=== PATIENT | male | born 1990 | race African-American/Black ===

== ENCOUNTER 2024-06-25 19:22 | Emergency (ER) | payer SELFPAY ==
[2024-06-25] MEDS ORDERED: ALBUTEROL 2.5 MG/3 ML NEB SOL ONE ×2 (19:40→20:42)
[2024-06-25] MEDS ORDERED: IPRATROPIUM BROM 0.5MG/2.5ML ONE ×2 (19:40→20:42)
[2024-06-25] MEDS ORDERED: predniSONE 20 MG TAB ONE (19:40)
--- NOTE | 2024-06-25 20:11 | RAD REPORT ---
EXAMINATION: ONE VIEW CHEST XR CLINICAL INDICATION: DYSPNEA TECHNIQUE: Frontal chest projection is submitted. Examination is limited by patient positioning and t echnique. COMPARISON: No prior exam. FINDINGS: The lungs are well inflated and clear. The heart is normal in size. No displaced fractures identified . IMPRESSION: No acute intrathoracic abnormalities.
[2024-06-25 20:14] LABS: Influenza A Ag Negative; Influenza B Ag Negative; SARS-CoV-2 Antigen Rapid Res Negative (Negative)
[2024-06-25] MEDS ORDERED: METHYLPREDNISOLONE 125 MG INJ ONE (21:07)
[2024-06-25] MEDS ORDERED: Magnesium Sulfate 2gm IVPB 2 G/50 ML BAG IV ONE (21:08)
--- NOTE | 2024-06-25 21:33 | EDPHYS ---
Physician Documentation [facility] Name: Bteo Duffy Age: 33 yrs Sex: Male : 1990 Arrival Date: 06/25/2024 Time: : Bed 12 Private MD: ED Physician Samuel vAila HPI: 06/25 19:42 This 33 yrs old Male presents to ER via Ambulatory with complaints of Asthma sp3 Exacerbation, Shortness Of Breath. 19:42 33-year-old male with history of asthma presents to the ED with chief complaint sp3 shortness of breath and worsening asthma exacerbation has been going on for the last 3 to 4 days worsening today. He is speaking in 4-5 word sentences. He denies any fever, known sick contacts, travel history, prolonged immobilization, chest pain, back pain, or any other signs or symptoms on ROS at this time.. Historical: - Allergies: 19:38 No Known Allergies; bm8 - Home Meds: 19:38 Unable to obtain [Active]; bm8 - PMHx: 19:38 Asthma; bm8 - PSHx: 19:38 Unable to Obtain; bm8 - Immunization history:: Adult Immunizations up to date. - Infectious Disease History:: Denies. - Social history:: Smoking status: Patient denies any tobacco usage or history of. ROS: 19:44 Constitutional: Negative for fever, chills, and weight loss, Eyes: Negative for injury, sp3 pain, redness, and discharge, ENT: Negative for injury, pain, and discharge, Neck: Negative for injury, pain, and swelling, Cardiovascular: Negative for chest pain, palpitations, and edema, Abdomen/GI: Negative for abdominal pain, nausea, vomiting, diarrhea, and constipation, Back: Negative for injury and pain, MS/Extremity: Negative for injury and deformity, Skin: Negative for injury, rash, and discoloration, Neuro: Negative for headache, weakness, numbness, tingling, and seizure, Psych: Negative for depression, anxiety, suicide ideation, homicidal ideation, and hallucinations, Allergy/Immunology: Negative for hives, rash, and allergies, Endocrine: Negative for neck swelling, polydipsia, polyuria, polyphagia, and marked weight changes, Hematologic/Lymphatic: Negative for swollen nodes, abnormal bleeding, and unusual bruising, 19:44 All other systems are negative, Exam: 19:45 Constitutional: This is a well developed, well nourished patient who is awake, alert, sp3 and in no acute distress. Eyes: Pupils equal round and reactive to light, extra-ocular motions intact. Lids and lashes normal. Conjunctiva and sclera are non-icteric and not injected. Cornea within normal limits. Periorbital areas with no swelling, redness, or edema. Neck: Trachea midline, no thyromegaly or masses palpated, and no cervical lymphadenopathy. Supple, full range of motion without nuchal rigidity, or vertebral point tenderness. No Meningismus. Chest/axilla: Normal chest wall appearance and motion. Nontender with no deformity. No lesions are appreciated. Abdomen/GI: Soft, non-tender, with normal bowel sounds. No distension or tympany. No guarding or rebound. No evidence of tenderness throughout. Back: No spinal tenderness. No costovertebral tenderness. Full range of motion. Skin: Warm, dry with normal turgor. Normal color with no rashes, no lesions, and no evidence of cellulitis. MS/ Extremity: Pulses equal, no cyanosis. Neurovascular intact. Full, normal range of motion. Neuro: Awake and alert, GCS 15, oriented to person, place, time, and situation. Cranial nerves II-XII grossly intact. Motor strength 5/5 in all extremities. Sensory grossly intact. Cerebellar exam normal. Normal gait. 19:45 Cardiovascular: Rate: tachycardic, 19:45 Respiratory: Patient is inspiratory expiratory wheezes bilaterally. Respiratory rate 30 pulse rate 124. Satting at 97% on room air., Vital Signs: 19:37 BP 151 / 98; Pulse 124; Resp 30; Temp 98.2; Pulse Ox 97% ; Weight 68.04 kg; Height 5 bm8 ft. 9 in. ; Pain 6/10; 20:09 BP 128 / 91; Pulse 107; Resp 20 S; Pulse Ox 100% on 7 lpm Nebulizer Mask; ha1 20:23 BP 125 / 81; Pulse 110; Resp 20 S; Pulse Ox 100% on R/A; ha1 21:29 BP 149 / 27; Pulse 128; Resp 20; Pulse Ox 95% on R/A; al5 22:08 BP 132 / 92; Pulse 110; Resp 20; Pulse Ox 98% on R/A; al5 19:37 Body Mass Index 22.15 (68.04 kg, 175.26 cm) bm8 19:37 Pain Scale: Adult bm8 MDM: 19:29 Medical Screening Exam initiated sp3 19:46 Data reviewed: vital signs, nurses notes, radiologic studies. ED course: 33-year-old sp3 male with asthma now with asthma exacerbation versus bronchitis versus pneumonia versus viral illness. Workup will include chest x-ray and COVID and flu swab. Treatment will include DuoNeb, p.o. prednisone and general observation. Will add IV meds if indicated.. 21:01 ED course: Patient on second DuoNeb and still having inspiratory expiratory wheezing. sp3 Will start IV to give IV Solu-Medrol and 2 g of magnesium. Will reevaluate after that.. 21:32 ED course: Patient improved now with clear breath sounds bilaterally. Will refill his sp3 albuterol Nebules, inhaler and prednisone.. 03/02 19:39 Order name: COVID-19 Ag + Flu A+B Ag; Complete Time: 20:17 sp3 06/25 19:39 Order name: CXR XRAY; Complete Time: 20:17 sp3 /02 20:52 Order name: IV Saline Lock; Complete Time: 21:06 sp3 Administered Medications: 19:45 Drug: DuoNeb Nebulize (3:1) (2.5 mg - 0.5 mg) 3 ml Nebulizer once Route: Nebulizer; ha1 22:09 Follow up: Response: No adverse reaction al5 19:45 Drug: predniSONE PO 60 mg PO once Route: PO; ha1 22:10 Follow up: Response: No adverse reaction al5 20:44 Drug: DuoNeb Nebulize (3:1) (2.5 mg - 0.5 mg) 3 ml Nebulizer once Route: Nebulizer; ha1 22:10 Follow up: Response: No adverse reaction al5 21:09 Drug: MethylPrednisoLONE IVP 125 mg IVP once Route: IVP; Site: right hand; ha1 22:09 Follow up: Response: No adverse reaction al5 21:11 Drug: Magnesium Sulfate IVPB 2 grams IVPB once over 2 hrs Route: IVPB; Infused Over: 2 ha1 hrs; Site: right hand; 22:09 Follow up: Response: No adverse reaction; IV Status: Completed infusion; IV Intake: al5 100ml Disposition Summary: 06/25/24 21:32 Discharge Ordered Notes: Location: Home sp3 Condition: Stable sp3 Diagnosis - Asthma exacerbation sp3 Followup: sp3 - With: Private Physician - When: Upon discharge from the Emergency Department - Reason: Continuance of care Discharge Instructions: - Discharge Summary Sheet sp3 - Asthma Attack Prevention, Adult sp3 Forms: - Medication Reconciliation Form sp3 - Antibiotic Education sp3 - Prescription Opioid Use sp3 - Patient Portal Instructions sp3 - Leadership Thank You Letter sp3 Prescriptions: - Symbicort 80-4.5 mcg/actuation Inhalation HFA Aerosol Inhaler - inhale 2 inhalation INHALATION route 2 times per day; 1 Each; Refills: 0, sp3 Product Selection Permitted - albuterol sulfate 90 mcg/actuation Inhalation HFA Aerosol Inhaler - inhale 2 inhalation INHALATION route every 3 hours as needed for bronchospasm; sp3 administer via ventilator; 1 Applicator; Refills: 0, Product Selection Permitted - Albuterol Sulfate 2.5 mg /3 mL (0.083 %) Inhalation Solution for Nebulization - inhale 1 unit NEBULIZATION route every 8 hours As needed; 1 Each; Refills: 0, sp3 Product Selection Permitted - Prednisone 20 mg Oral Tablet - take 2 tablets ORAL route once daily for 5 days; 10 tablet; Refills: 0, Product sp3 Selection Permitted Signatures: Dispatcher [employer] EDSamuel Baig MD MD sp3 Skyla Jacob RN RN ha1 Deven Mohamud RN RN bm8 Ophelia Pope RN al5 Corrections: (The following items were deleted from the chart) 19:40 19:40 Chest Single View+RAD.RAD.BRZ ordered. EDMS EDMS 19:40 19:40 COVID-19 Ag + Flu A+B Ag+I.LAB.BRZ ordered. EDMS EDMS
--- NOTE | 2024-06-25 21:33 | ER ---
Nurse's Notes [facility] Name: Beto Duffy Age: 33 yrs Sex: Male : 1990 Arrival Date: 06/25/2024 Time: 19: Bed 12 Private MD: Diagnosis: Asthma exacerbation Presentation: 06/25 19:37 Chief complaint: Patient states: I have been having trouble with my asthma since bm8 yesterday. Coronavirus screen: At this time, the client does not indicate any symptoms associated with coronavirus-19. Ebola Screen: Patient negative for fever greater than or equal to 101.5 degrees Fahrenheit, and additional compatible Ebola Virus Disease symptoms Patient denies exposure to infectious person. Patient denies travel to an Ebola-affected area in the 21 days before illness onset. No symptoms or risks identified at this time. Initial Sepsis Screen: Does the patient meet any 2 criteria? No. Patient's initial sepsis screen is negative. Does the patient have a suspected source of infection? No. Patient's initial sepsis screen is negative. Risk Assessment: Do you want to hurt yourself or someone else? Patient reports no desire to harm self or others. Onset of symptoms was June 24, 2024 at 08:00. 19:37 Method Of Arrival: Ambulatory bm8 19:37 Acuity: NAVA 3 bm8 Triage Assessment: 19:38 General: Appears in no apparent distress. uncomfortable, Behavior is calm, cooperative, bm8 appropriate for age. Pain: Complains of pain in chest Pain currently is 6 out of 10 on a pain scale. Quality of pain is described as tightness. EENT: No deficits noted. No signs and/or symptoms were reported regarding the EENT system. Neuro: No deficits noted. Level of Consciousness is awake, alert, obeys commands, Oriented to person, place, time, situation, Appropriate for age. Cardiovascular: Reports chest pain, shortness of breath, Heart tones S1 S2 present Capillary refill < 3 seconds in bilateral fingers Patient's skin is warm and dry. Respiratory: Reports shortness of breath labored breathing Airway is patent Respiratory effort is even, labored, Respiratory pattern is regular, symmetrical, Breath sounds with wheezes bilaterally. Onset: The symptoms/episode began/occurred yesterday, the patient has moderate shortness of breath. GI: No signs and/or symptoms were reported involving the gastrointestinal system. : No signs and/or symptoms were reported regarding the genitourinary system. Derm: No signs and/or symptoms reported regarding the dermatologic system. Musculoskeletal: No signs and/or symptoms reported regarding the musculoskeletal system. Historical: - Allergies: 19:38 No Known Allergies; bm8 - Home Meds: 19:38 Unable to obtain [Active]; bm8 - PMHx: 19:38 Asthma; bm8 - PSHx: 19:38 Unable to Obtain; bm8 - Immunization history:: Adult Immunizations up to date. - Infectious Disease History:: Denies. - Social history:: Smoking status: Patient denies any tobacco usage or history of. Screenin:31 [facility] ED Fall Risk Assessment (Adult) History of falling in the last 3 months, al5 including since admission No falls in past 3 months (0 pts) Confusion or Disorientation No (0 pts) Intoxicated or Sedated No (0 pts) Impaired Gait No (0 pts) Mobility Assist Device Used No (0 pt) Altered Elimination Score/Fall Risk Level 0 - 2 = Low Risk Oriented to surroundings, Maintained a safe environment, Hourly rounding (assess needs \T\ fall precautionary measures) done. Abuse screen: Denies threats or abuse. Denies injuries from another. Nutritional screening: No deficits noted. Tuberculosis screening: No symptoms or risk factors identified. Assessment: 19:35 General: Appears uncomfortable, Behavior is cooperative. Pain: Denies pain. Neuro: ha1 Level of Consciousness is awake, alert, obeys commands, Oriented to person, place, time, situation. Cardiovascular: Reports shortness of breath, Capillary refill < 3 seconds Patient's skin is warm and dry. Rhythm is regular. Respiratory: Reports shortness of breath Airway is patent Respiratory effort is even, Respiratory pattern is tachypnea Breath sounds with wheezes bilaterally. GI: No signs and/or symptoms were reported involving the gastrointestinal system. : No signs and/or symptoms were reported regarding the genitourinary system. Derm: Skin is normal. Musculoskeletal: Circulation, motion, and sensation intact. 20:09 Reassessment: Patient and/or family updated on plan of care and expected duration. Pain ha1 level reassessed. Patient is alert, oriented x 3, equal unlabored respirations, skin warm/dry/pink. Patient states symptoms have improved. 20:23 Reassessment: Patient and/or family updated on plan of care and expected duration. Pain ha1 level reassessed. Patient is alert, oriented x 3, equal unlabored respirations, skin warm/dry/pink. Patient states symptoms have improved. 21:28 General: Appears in no apparent distress. comfortable, Behavior is calm, cooperative. al5 21:28 Pain: Denies pain. Neuro: Level of Consciousness is awake, alert, obeys commands, al5 Oriented to person, place, time, situation. Cardiovascular: Reports tightness in chest Capillary refill < 3 seconds Patient's skin is warm and dry. Rhythm is regular. Respiratory: Airway is patent Respiratory effort is even, unlabored, Respiratory pattern is regular, symmetrical, Breath sounds are clear bilaterally. GI: No signs and/or symptoms were reported involving the gastrointestinal system. : No signs and/or symptoms were reported regarding the genitourinary system. EENT: No signs and/or symptoms were reported regarding the EENT system. Derm: Skin is intact, is healthy with good turgor, Skin is pink, warm \T\ dry. normal. Musculoskeletal: No signs and/or symptoms reported regarding the musculoskeletal system. 21:34 Reassessment: discharge pending finishing magnesium. al5 Vital Signs: 19:37 BP 151 / 98; Pulse 124; Resp 30; Temp 98.2; Pulse Ox 97% ; Weight 68.04 kg; Height 5 bm8 ft. 9 in. ; Pain 6/10; 20:09 BP 128 / 91; Pulse 107; Resp 20 S; Pulse Ox 100% on 7 lpm Nebulizer Mask; ha1 20:23 BP 125 / 81; Pulse 110; Resp 20 S; Pulse Ox 100% on R/A; ha1 21:29 BP 149 / 27; Pulse 128; Resp 20; Pulse Ox 95% on R/A; al5 22:08 BP 132 / 92; Pulse 110; Resp 20; Pulse Ox 98% on R/A; al5 19:37 Body Mass Index 22.15 (68.04 kg, 175.26 cm) bm8 19:37 Pain Scale: Adult bm8 ED Course: 19:26 Patient arrived in ED. jj6 19:28 Samuel Avila MD is Attending Physician. sp3 19:38 Triage completed. bm8 19:38 Arm band placed on right wrist. bm8 19:53 COVID-19 Ag + Flu A+B Ag Sent. ha1 20:05 CXR XRAY In Process Unspecified. EDMS 20:25 Skyla Jacob, WENDY is Primary Nurse. ha1 21:00 Inserted saline lock: 20 gauge in right Blood collected. Flushed with 10 mL NS. ha1 21:31 Patient has correct armband on for positive identification. Bed in low position. Call al5 light in reach. Side rails up X 1. Provided Education on: medications. 21:31 No provider procedures requiring assistance completed. al5 22:08 IV discontinued, intact, bleeding controlled, No redness/swelling at site. Pressure al5 dressing applied. Administered Medications: 19:45 Drug: DuoNeb Nebulize (3:1) (2.5 mg - 0.5 mg) 3 ml Nebulizer once Route: Nebulizer; ha1 22:09 Follow up: Response: No adverse reaction al5 19:45 Drug: predniSONE PO 60 mg PO once Route: PO; ha1 22:10 Follow up: Response: No adverse reaction al5 20:44 Drug: DuoNeb Nebulize (3:1) (2.5 mg - 0.5 mg) 3 ml Nebulizer once Route: Nebulizer; ha1 22:10 Follow up: Response: No adverse reaction al5 21:09 Drug: MethylPrednisoLONE IVP 125 mg IVP once Route: IVP; Site: right hand; ha1 22:09 Follow up: Response: No adverse reaction al5 21:11 Drug: Magnesium Sulfate IVPB 2 grams IVPB once over 2 hrs Route: IVPB; Infused Over: 2 ha1 hrs; Site: right hand; 22:09 Follow up: Response: No adverse reaction; IV Status: Completed infusion; IV Intake: al5 100ml Medication: 21:31 VIS not applicable for this client. al5 Intake: 22:09 IV: 100ml; Total: 100ml. al5 Outcome: 21:32 Discharge ordered by MD. nova 22:09 Discharged to home ambulatory, with family, al5 22:09 Condition: good 22:09 Discharge instructions given to patient, Instructed on discharge instructions, follow up and referral plans. medication usage, Demonstrated understanding of instructions, follow-up care, medications, Prescriptions given X 4, 22:09 Patient left the ED. al5 Signatures: Dispatcher [employer] EDMS Samuel Avila MD MD sp3 Miryam Johansen jj6 Skyla Jacob, RN RN ha1 Deven Mohamud RN RN bm8 Ophelia Pope RN RN al5 Corrections: (The following items were deleted from the chart) 21:29 21:28 General: Appears in no apparent distress. comfortable, Behavior is calm, al5 cooperative, al5
[2024-06-25 23:02] VITALS: TEMP 98.2
[2024-06-25 23:07] VITALS: BP 132/92; O2SAT 98
== END 2024-06-25 22:09 | disposition home or self-care (01) ==
LOC: ER 19:22
DX: J45.901 Unspecified asthma with (acute) exacerbation (principal); Z11.52 Encounter for screening for COVID-19
CPT/HCPCS: 36415; 71045; 87428; 96365; 96375; 99285; J2919; J3475; J7512; J7613; J7644

== ENCOUNTER 2024-07-10 04:00 | Emergency (ER) | payer SELFPAY ==
[2024-07-10] MEDS ORDERED: IPRATROPIUM BROM 0.5MG/2.5ML ONE (04:09)
[2024-07-10] MEDS ORDERED: ALBUTEROL 2.5 MG/3 ML NEB SOL ONE (04:09)
[2024-07-10] MEDS ORDERED: METHYLPREDNISOLONE 125 MG INJ ONE (04:10)
[2024-07-10] MEDS ORDERED: Magnesium Sulfate 2gm IVPB 2 G/50 ML BAG IV ONE (04:10)
[2024-07-10 04:31] LABS: Absolute Basophils 0.2 K/uL (0-0.5); Absolute Eosinophils 3.2 K/uL (0-0.5); Absolute Lymphocytes (CBC) 3.9 K/uL (0.7-4.9); Absolute Neutrophil 8.3 K/uL (1.8-8.0); Basophils % 1.3 % (0-1.3); Eosinophils % 19.2 % (0-4.4); Hematocrit 44.6 % (39.6-49.0); Hemoglobin 14.8 g/dL (13.6-17.9); Lymphocytes % 23.6 % (15.3-44.8); MCH 28.8 pg (27.0-35.0); MCHC 33.2 g/dL (32.0-36.0); MCV 86.8 fL (80-100); MPV 8.7 fL (7.6-11.3); Monocytes % 5.7 % (3.3-12.3); Neutrophils % 50.2 % (41.7-73.7); Platelets 260 thou/uL (152-406); RBC Red Blood Cell Count 5.14 M/uL (4.33-5.43); Red Cell Distribution Width 15.1 % (12.1-15.2)
[2024-07-10 04:59] LABS: Anion Gap 7.9 mEq/L (5.0-15.0); Potassium 2.9 mEq/L (3.5-5.1)
[2024-07-10 05:22] LABS: Band Neutrophils 3 % (0-1); Differential Total Cells Count 100; Eosinophils 15 % (0-3); Lymphocytes 15 % (15-42); Monocytes 3 % (0-10); Reactive Lymphocytes 12 %; Segmented Neutrophils 52 % (40-80)
[2024-07-10 05:23] LABS: Blood Morphology Comment NOT SEEN (NOT SEEN); Platelet Estimate ADEQ
--- NOTE | 2024-07-10 05:32 | ER ---
Nurse's Notes [facility] Name: Beto Duffy Age: 33 yrs Sex: Male : 1990 Arrival Date: 07/10/2024 Time: 04:00 Bed 4 Private MD: Diagnosis: Mild intermittent asthma with (acute) exacerbation Presentation: 07/10 04:10 Chief complaint: Patient states: I have been having trouble breathing for like a week. 8 Coronavirus screen: Vaccine status: Patient reports being unvaccinated. At this time, the client does not indicate any symptoms associated with coronavirus-19. Ebola Screen: Patient negative for fever greater than or equal to 101.5 degrees Fahrenheit, and additional compatible Ebola Virus Disease symptoms Patient denies exposure to infectious person. Patient denies travel to an Ebola-affected area in the 21 days before illness onset. No symptoms or risks identified at this time. Initial Sepsis Screen: Does the patient meet any 2 criteria? Yes Does the patient have a suspected source of infection? No. Patient's initial sepsis screen is negative. Risk Assessment: Do you want to hurt yourself or someone else? Patient reports no desire to harm self or others. Onset of symptoms was July 04, 2024. 04:10 Method Of Arrival: Ambulatory [facility] 04:10 Acuity: NAVA 3 bm8 Triage Assessment: 04:11 General: Appears distressed, uncomfortable, Behavior is cooperative, appropriate for bm8 age, anxious. Pain: Complains of pain in chest Pain currently is 6 out of 10 on a pain scale. EENT: No deficits noted. No signs and/or symptoms were reported regarding the EENT system. Neuro: No deficits noted. Level of Consciousness is awake, alert, obeys commands, Oriented to person, place, time, situation, Appropriate for age. Cardiovascular: Reports shortness of breath, Heart tones S1 S2 present Capillary refill < 3 seconds in bilateral fingers Patient's skin is warm and dry. Respiratory: Reports shortness of breath labored breathing Airway is patent Respiratory effort is labored, pursed lip, Respiratory pattern is regular, symmetrical, Breath sounds with wheezes bilaterally. Onset: The symptoms/episode began/occurred gradually, the patient has moderate shortness of breath. GI: No signs and/or symptoms were reported involving the gastrointestinal system. : No signs and/or symptoms were reported regarding the genitourinary system. Derm: No signs and/or symptoms reported regarding the dermatologic system. Musculoskeletal: No signs and/or symptoms reported regarding the musculoskeletal system. Historical: - Allergies: 04:11 No Known Allergies; bm8 - Home Meds: 04:11 Unable to obtain [Active]; bm8 - PMHx: 04:11 Asthma; bm8 - PSHx: 04:11 None; bm8 - Immunization history:: Adult Immunizations up to date. - Infectious Disease History:: Denies. - Social history:: Smoking status: Reported history of juuling and/or vaping. Patient/guardian denies using street drugs. Screenin:32 [facility] ED Fall Risk Assessment (Adult) History of falling in the last 3 months, bm8 including since admission No falls in past 3 months (0 pts) Confusion or Disorientation No (0 pts) Intoxicated or Sedated No (0 pts) Impaired Gait No (0 pts) Mobility Assist Device Used No (0 pt) Altered Elimination No (0 pt) Score/Fall Risk Level 0 - 2 = Low Risk Oriented to surroundings, Maintained a safe environment, Educated pt \T\ family on fall prevention, incl call for assistance when getting out of bed, Assessed \T\ reinforced patient's understanding of fall precautions, Hourly rounding (assess needs \T\ fall precautionary measures) done, Used ambulatory aids as needed (educated on \T\ assisted with), Used gait belt as appropriate. Abuse screen: Denies threats or abuse. Nutritional screening: No deficits noted. Tuberculosis screening: No symptoms or risk factors identified. Assessment: 04:51 Pain: Pain currently is 3 out of 10 on a pain scale. Cardiovascular: Heart tones S1 S2 bm8 present Rhythm is sinus rhythm. Respiratory: Airway is patent Respiratory effort is even, unlabored, Respiratory pattern is regular, symmetrical, Breath sounds with wheezes bilaterally. 04:53 Reassessment: pt made comment about his hip hurting for two months and asked if we bm8 could check it out. Provider informed. 05:32 Reassessment: Patient appears in no apparent distress at this time. Patient and/or bm8 family updated on plan of care and expected duration. Pain level reassessed. Patient is alert, oriented x 3, equal unlabored respirations, skin warm/dry/pink. Patient denies pain at this time. Patient states feeling better. Patient states symptoms have improved. Respiratory: Airway is patent Respiratory effort is even, unlabored, Respiratory pattern is regular, symmetrical, Breath sounds are clear bilaterally. Vital Signs: 04:10 BP 164 / 118; Pulse 122; Resp 30; Temp 98.5; Pulse Ox 94% ; Weight 68.95 kg; Height 5 bm8 ft. 9 in. ; Pain 6/10; 04:51 BP 147 / 110; Pulse 108; Pulse Ox 97% ; ec2 05:13 BP 144 / 108; ec2 05:38 bm8 04:10 Body Mass Index 22.45 (68.95 kg, 175.26 cm) bm8 04:10 Pain Scale: Adult bm8 05:38 pt refused last vitals bm8 [place] Coma Score: 05:38 Eye Response: spontaneous(4). Motor Response: obeys commands(6). Verbal Response: bm8 oriented(5). Total: 15. ED Course: 04:02 Patient arrived in ED. jj6 04:08 You Geiger MD is Attending Physician. ec2 04:10 Deven Mohamud, RN is Primary Nurse. bm8 04:11 Triage completed. bm8 04:11 Arm band placed on left wrist. bm8 04:13 Initial lab(s) drawn, by ED staff, sent to lab. Initial Neb Treatment Given as ordered bm8 Patient was instructed and evaluated on procedure. Inserted saline lock: 20 gauge in left antecubital area, using aseptic technique. Blood collected. Flushed with 10 mL NS. Oxygen administered via a nebulizer mask. 04:31 CXR XRAY In Process Unspecified. EDMS 05:32 Patient has correct armband on for positive identification. Bed in low position. Call bm8 light in reach. Side rails up X 1. Provided Education on: post er care. Client placed on continuous cardiac and pulse oximetry monitoring. NIBP monitoring applied. Pulse ox on. NIBP on. Door closed. Noise minimized. Verbal reassurance given. Head of bed elevated. 05:32 No provider procedures requiring assistance completed. IV discontinued, intact, bm8 bleeding controlled, No redness/swelling at site. Pressure dressing applied. Administered Medications: 04:13 Drug: MethylPrednisoLONE IVP 125 mg IVP once Route: IVP; Site: left antecubital; bm8 05:40 Follow up: Response: No adverse reaction bm8 04:13 Drug: DuoNeb Nebulize (3:1) (2.5 mg - 0.5 mg) 3 ml Nebulizer once Route: Nebulizer; bm8 05:40 Follow up: Response: No adverse reaction bm8 04:13 Drug: Magnesium Sulfate IVPB 2 grams IVPB once over 30 mins Route: IVPB; Infused Over: bm8 30 mins; Site: left antecubital; 05:39 Follow up: Response: No adverse reaction; IV Status: Completed infusion bm8 Medication: 05:32 VIS not applicable for this client. bm8 Outcome: 05:32 Discharge ordered by . ec2 05:38 Discharged to home ambulatory, bm8 05:38 Condition: stable 05:38 Discharge instructions given to patient, Instructed on discharge instructions, follow up and referral plans. no drinking with medication, no driving heavy equipment, medication usage, Demonstrated understanding of instructions, follow-up care, medications, Prescriptions given X 2, 05:39 Patient left the ED. bm8 Signatures: Dispatcher [employer] Miryam [id number] You Geiger MD MD ec2 Deven Mohamud, RN RN bm8
--- NOTE | 2024-07-10 05:32 | EDPHYS ---
Physician Documentation [facility] Name: Beto Duffy Age: 33 yrs Sex: Male : 1990 Arrival Date: 07/10/2024 Time: 04:00 Bed 4 Private MD: ED Physician You Geiger HPI: 07/10 04:12 This 33 yrs old Black Male presents to ER via Ambulatory with complaints of Breathing ec2 Difficulty. 04:12 Patient arrives today d/t concern for sob. hx of asthma, has been using his inhalers w/ ec2 minimal improvement. no cough, uri s/s, fevers, chills or n/v.. Historical: - Allergies: 04:11 No Known Allergies; bm8 - Home Meds: 04:11 Unable to obtain [Active]; bm8 - PMHx: 04:11 Asthma; bm8 - PSHx: 04:11 None; bm8 - Immunization history:: Adult Immunizations up to date. - Infectious Disease History:: Denies. - Social history:: Smoking status: Reported history of juuling and/or vaping. Patient/guardian denies using street drugs. ROS: 04:13 Constitutional: as per hpi ec2 Exam: 04:13 Constitutional: GEN: NAD Head: atraumatic Eyes: EOMI Ears: External ears are ec2 normal. CV: Tachycardia LUNGS: Tachypnea, wheezes, diminished lung sounds present throughout all lung rogers ABD: non-distended SKIN: no evidence of rashes MSK: no evidence of trauma Vital Signs: 04:10 BP 164 / 118; Pulse 122; Resp 30; Temp 98.5; Pulse Ox 94% ; Weight 68.95 kg; Height 5 bm8 ft. 9 in. ; Pain 6/10; 04:51 BP 147 / 110; Pulse 108; Pulse Ox 97% ; ec2 05:13 BP 144 / 108; ec2 05:38 bm8 04:10 Body Mass Index 22.45 (68.95 kg, 175.26 cm) bm8 04:10 Pain Scale: Adult bm8 05:38 pt refused last vitals bm8 [place] Coma Score: 05:38 Eye Response: spontaneous(4). Motor Response: obeys commands(6). Verbal Response: bm8 oriented(5). Total: 15. MDM: 04:09 Medical Screening Exam initiated ec2 04:13 Data reviewed: vital signs, nurses notes. ED course: Patient arrives today for ec2 shortness of breath in the setting of a history of asthma. Will obtain chest x-ray, blood work, treat with DuoNeb, steroids as well as magnesium.. 05:31 ED course: On reassessment patient remains with improved respiratory status with ec2 appropriate oxygenation. Patient asking about several months of his right hip pain and pain with ambulation and movement, instructed him he needs to follow-up with his primary care doctor, patient is ambulatory without issue and good range of motion of the hip. Patient does not require emergent evaluation for this process.. 05:33 ED course: Additionally also discussed inpatient hospitalization for the patient's ec2 asthma exacerbation, patient states that he felt well enough to be discharged.. 05:56 ED course: Patient did have verbal outbursts regarding his chronic right hip pain and ec2 lack of advanced imaging which she does not emergently require. Patient was ambulatory and was pacing in the hallway while having his emotional outburst. Patient remains with intact range of motion and is still appropriate for outpatient follow-up For his hip. I did instruct him that he is welcome to be admitted for his asthma exacerbation.. 07/10 04:08 Order name: CBC with Diff; Complete Time: 05:26 ec2 07/10 04:08 Order name: BMP; Complete Time: 05:14 ec2 07/10 04:49 Order name: Manual Differential; Complete Time: 05:26 EDMS 07/10 04:08 Order name: CXR XRAY ec2 07/10 04:08 Order name: IV; Complete Time: 04:13 ec2 Administered Medications: 04:13 Drug: MethylPrednisoLONE IVP 125 mg IVP once Route: IVP; Site: left antecubital; bm8 05:40 Follow up: Response: No adverse reaction bm8 04:13 Drug: DuoNeb Nebulize (3:1) (2.5 mg - 0.5 mg) 3 ml Nebulizer once Route: Nebulizer; bm8 05:40 Follow up: Response: No adverse reaction bm8 04:13 Drug: Magnesium Sulfate IVPB 2 grams IVPB once over 30 mins Route: IVPB; Infused Over: bm8 30 mins; Site: left antecubital; 05:39 Follow up: Response: No adverse reaction; IV Status: Completed infusion bm8 Disposition Summary: 07/10/24 05:32 Discharge Ordered Notes: Location: Home ec2 Condition: Stable ec2 Diagnosis - Mild intermittent asthma with (acute) exacerbation ec2 Followup: ec2 - With: Private Physician - When: - Reason: Re-evaluation by your physician Discharge Instructions: - Discharge Summary Sheet ec2 - Asthma, Adult ec2 Forms: - Medication Reconciliation Form ec2 - Antibiotic Education ec2 - Prescription Opioid Use ec2 - Patient Portal Instructions ec2 - Leadership Thank You Letter ec2 Prescriptions: - Zithromax Z-Luis Alfredo 250 mg Oral Tablet - take 1 tablet ORAL route as directed for 5 days Day 1 - take two (2) tablets ec2 one time. Day 2, 3, 4 , 5 take one (1) tablet once daily.; 6 tablet; Refills: 0, Product Selection Permitted - Prednisone 20 mg Oral Tablet - take 2 tablets ORAL route once daily for 5 days; 10 tablet; Refills: 0, Product ec2 Selection Permitted Signatures: Dispatcher [employer] [facility] You Geiger MD MD ec2 Deven Mohamud RN RN bm8 Corrections: (The following items were deleted from the chart) 05:55 05:31 ED course: Aggressive patient remains with improvement in respiratory status. On ec2 reassessment patient remains with improved respiratory status with appropriate oxygenation. Patient asking about several months of his right hip pain and pain with ambulation and movement, instructed him he has a follow-up with his primary care doctor, patient is ambulatory without issue and good range of motion of the hip. Patient does not require emergent evaluation for this process.. ec2 05:57 05:56 ED course: Patient did have verbal outbursts regarding his chronic right hip pain ec2 and lack of advanced imaging which she does not emergently require. Patient was ambulatory and was pacing in the hallway while having his emotional outburst. Patient remains with intact range of motion and is still appropriate for outpatient follow-up.. ec2
[2024-07-10 05:43] VITALS: TEMP 98.5
[2024-07-10 05:44] VITALS: O2SAT 97
[2024-07-10 05:45] VITALS: BP 144/108
--- NOTE | 2024-07-10 06:03 | RAD REPORT ---
EXAM DESCRIPTION: Chest Single View CLINICAL HISTORY: COUGH COMPARISON: None. FINDINGS: 1 view(s) of the chest. Tubes and lines: None. Cardiomediastinal silhouette: Normal size and contour. Lungs: No consolidation, pneumothorax, or pleural effusion. Bones: No acute osseous abnormality. Upper abdomen: No abnormality identified. IMPRESSION: 1. No acute pulmonary process identified. Electronically signed by: Juan Bond DO 07/10/2024 05:45 AM CDT RP [id number] Due to temporary technical issues with the PACS/[employer] reporting system, reports are being elida d by the in-house radiologist without review as a courtesy to ensure prompt reporting the interpreting radiologist is fully responsible for the content of the report. Transcribed Date/Time: 07/10/2024 6:03 AM
== END 2024-07-10 05:39 | disposition home or self-care (01) ==
LOC: ER 04:00
DX: J45.21 Mild intermittent asthma with (acute) exacerbation (principal)
CPT/HCPCS: 36415; 71045; 80048; 85025; 94640; 96365; 96375; 99285; J2919; J3475; J7613; J7644